=== PATIENT | male | born 1985 | race Caucasian/White ===

== ENCOUNTER 2017-02-13 22:00 | Emergency (ER) | payer BC ==
--- NOTE | 2017-02-13 22:22 | EDM.PDOC ---
ED HPI GENERAL MEDICAL PROBLEM - General Chief Complaint: Skin Complaint Stated Complaint: LEFT ARM PAIN Time Seen by Provider: 02/13/17 22:06 - History of Present Illness INITIAL COMMENTS - FREE TEXT/NARRATIVE: HISTORY AND PHYSICAL: History of present illness: The patient is a healthy 31-year-old male who presents for evaluation of bruising and discomfort to his left antecubital fossa after having an IV placed there 3 days ago. The patient said he was seen at an ER in [place] where he was hiking and was evaluated for dehydration and exhaustion. He says that those symptoms have resolved and he is not worried about that. He came because he had some bruising in that area with IV was started, the left antecubital fossa, because he says that they told them that they initially missed the vein and then got in. He was concerned because the bruising seemed to increase in size and some. He has been using his arm a lot with his daily activities. He has no neurosensory changes in his arm no streaking up his arm and no weakness in that arm. He otherwise has no systemic complaints Review of systems: As per history of present illness and below otherwise all systems reviewed and negative. Past medical history: As per history of present illness and as reviewed below otherwise noncontributory. Surgical history: As per history of present illness and as reviewed below otherwise noncontributory. Social history: No reported history of drug or alcohol abuse. Family history: As per history of present illness and as reviewed below otherwise noncontributory. Physical exam: Gen.: Well-developed well-nourished man who is nontoxic and vital signs reviewed by me HEENT: Atraumatic, normocephalic, negative for conjunctival pallor or scleral icterus, mucous membranes moist, throat clear, neck supple, nontender, trachea midline. Lungs: Clear to auscultation, breath sounds equal bilaterally, chest nontender. Heart: S1S2, regular rate and rhythm no overt murmurs Abdomen: Soft, nondistended, nontender. NABS Pelvis: Deferred Genitourinary: Deferred. Rectal: Deferred. Extremities: Atraumatic, full range of motion without any defects or deficits no palpable bony deformities. At the left antecubital fossa there is a resolving ecchymosis which is brownish in color with some areas of purplish coloration but the vein is not hardened and only minimally tender. There is no compartment swelling or abnormalities distally and proximally there is no erythema warmth or streaking noted. Neurovascular unremarkable. Neuro: Awake, alert, oriented. Cranial nerves II through XII unremarkable. Cerebellum unremarkable. Motor and sensory unremarkable throughout. Exam nonfocal. Diagnostics: [] Therapeutics: [] Impression: Left antecubital resolving hematoma status post IV start Definitive disposition and diagnosis as appropriate pending reevaluation and review of above. left arm Pain Score (Numeric/FACES): 4 - Related Data Allergies Allergy/AdvReac Type Severity Reaction Status Date / Time No Known Allergies Allergy Verified 02/13/17 22:12 Home Meds: Home Meds . 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" - Infectious Disease History Infectious Disease History: Reports: None - Past Surgical History Head Surgeries/Procedures: Reports: None HEENT Surgical History: Reports: Oral Surgery Dermatological Surgical History: Reports: Other (See Below) Social & Family History - Family History Family Medical History: Noncontributory - Tobacco Use Smoking Status *Q: Never Smoker Second Hand Smoke Exposure: No - Caffeine Use Caffeine Use: Reports: Coffee - Alcohol Use Days Per Week of Alcohol Use: 7 Number of Drinks Per Day: 3 Total Drinks Per Week: 21 - Recreational Drug Use Recreational Drug Use: No Drug Use in Last 12 Months: Yes Recreational Drug Type: Reports: Marijuana/Hashish Recreational Drug Use Frequency: Socially ED ROS GENERAL - Review of Systems Review Of Systems: ROS reveals no pertinent complaints other than HPI. ED EXAM, SKIN/RASH Exam: See Below (See dictation) Course - Vital Signs Last Recorded V/S: Last Vital Signs Temp 36.3 C 02/13/17 22:12 Pulse 60 02/13/17 22:12 Resp 18 02/13/17 22:12 BP 132/74 02/13/17 22:12 Pulse Ox 97 02/13/17 22:12 Departure - Departure Time of Disposition: 22:20 Disposition: Home, Self-Care 01 Condition: Good Clinical Impression: Traumatic ecchymosis of left upper arm Qualifiers: Encounter type: initial encounter Qualified Code(s): S40.022A - Contusion of left upper arm, initial encounter - Discharge Information Forms: ED Department Discharge Additional Instructions: The following information is given to patients seen in the emergency department who are being discharged to home. This information is to outline your options for follow-up care. We provide all patients seen in our emergency department with a follow-up referral. The need for follow-up, as well as the timing and circumstances, are variable depending upon the specifics of your emergency department visit. If you don't have a primary care physician on staff, we will provide you with a referral. We always advise you to contact your personal physician following an emergency department visit to inform them of the circumstance of the visit and for follow-up with them and/or the need for any referrals to a consulting specialist. The emergency department will also refer you to a specialist when appropriate. This referral assures that you have the opportunity for followup care with a specialist. All of these measure are taken in an effort to provide you with optimal care, which includes your followup. Under all circumstances we always encourage you to contact your private physician who remains a resource for coordinating your care. When calling for followup care, please make the office aware that this follow-up is from your recent emergency room visit. If for any reason you are refused follow-up, please contact the [facility] emergency department at and ask to speak to the emergency department charge nurse. [facility] Primary care- Internal Medicine and Family [address] [address] Elevate the area and use warm compresses for discomfort. Use [id number] medications for pain. The area will continue to change color and will eventually resolve over time. Please call and follow-up with your provider or one of our clinic doctors in the next few days for reevaluation and further management of this complaint. Return to ER as needed and as discussed
[2017-02-13 22:32] VITALS: BP 128/70
== END 2017-02-13 22:31 | disposition home or self-care (01) ==
LOC: MW.ED 22:00
DX: T80.89XA Other complications following infusion, transfusion and therapeutic injection, initial encounter (principal); S40.022A Contusion of left upper arm, initial encounter; X58.XXXA Exposure to other specified factors, initial encounter
CPT/HCPCS: 99282; 99283

== ENCOUNTER 2017-05-07 09:30 | Emergency (ER) | payer BC, OTHER ==
[2017-05-07 09:51] VITALS: BP 151/98
--- NOTE | 2017-05-07 10:23 | EDM.PDOC ---
ED HPI GENERAL MEDICAL PROBLEM - General Chief Complaint: Neuro Symptoms/Deficits Stated Complaint: DIZZINESS Time Seen by Provider: 05/07/17 10:03 Source of Information: Reports: Patient History Limitations: Reports: No Limitations - History of Present Illness INITIAL COMMENTS - FREE TEXT/NARRATIVE: History of present illness: [32-year-old male comes in complaining of lightheadedness, faintness, racing heart. Patient has a history of chronic alcohol consumption as well as occasional drug use in the form of cocaine. Patient acknowledges that he struggles with depression and he finds it within the realm of possibility that he could be having some anxiety issues. 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 Patient is uncertain if this is a viral illness such as the flu or more and would like to be evaluated.] Review of systems: As per history of present illness and below otherwise all systems reviewed and negative. Past medical history: As per history of present illness and as reviewed below otherwise noncontributory. Surgical history: As per history of present illness and as reviewed below otherwise noncontributory. Social history: No reported history of drug or alcohol abuse. Family history: As per history of present illness and as reviewed below otherwise noncontributory. Physical exam: HEENT: Atraumatic, normocephalic, pupils reactive, negative for conjunctival pallor or scleral icterus, mucous membranes moist, throat clear, neck supple, nontender, trachea midline. Lungs: Clear to auscultation, breath sounds equal bilaterally, chest nontender. Heart: S1S2, regular, negative for clicks, rubs, or JVD. Abdomen: Soft, nondistended, nontender. Negative for masses or hepatosplenomegaly. Negative for costovertebral tenderness. Pelvis: Stable nontender. Genitourinary: Deferred. Rectal: Deferred. Extremities: Atraumatic, negative for cords or calf pain. Neurovascular unremarkable. Neuro: Awake, alert, oriented. Cranial nerves II through XII unremarkable. Cerebellum unremarkable. Motor and sensory unremarkable throughout. Exam nonfocal. Global assessment is benign save the subjective complaint as noted above we'll test for influenza per patient's request as well as some basic labs to make sure he is not experiencing any nature and electronically amounts. Diagnostics: [Influenza and B, CBC, CMP] Therapeutics: [IV fluid, Ativan] Impression: [Anxiety] Plan: [Follow-up with family practice referral, brief run of Ativan] Definitive disposition and diagnosis as appropriate pending reevaluation and review of above. - Related Data Allergies Allergy/AdvReac Type Severity Reaction Status Date / Time No Known Allergies Allergy Verified 02/13/17 22:12 Home Meds: Home Meds . 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" - Infectious Disease History Infectious Disease History: Reports: None - Past Surgical History Head Surgeries/Procedures: Reports: None HEENT Surgical History: Reports: Oral Surgery Dermatological Surgical History: Reports: Other (See Below) Social & Family History - Family History Family Medical History: Noncontributory - Tobacco Use Smoking Status *Q: Never Smoker Second Hand Smoke Exposure: No - Caffeine Use Caffeine Use: Reports: Coffee - Alcohol Use Days Per Week of Alcohol Use: 7 Number of Drinks Per Day: 3 Total Drinks Per Week: 21 - Recreational Drug Use Recreational Drug Use: No Drug Use in Last 12 Months: Yes Recreational Drug Type: Reports: Marijuana/Hashish Recreational Drug Use Frequency: Socially ED ROS GENERAL - Review of Systems Review Of Systems: See Below (See history of present illness) ED EXAM, GENERAL - Physical Exam Exam: See Below (History of present illness) Course - Vital Signs Last Recorded V/S: Last Vital Signs Temp 36.7 C 05/07/17 09:44 Pulse 79 05/07/17 09:44 Resp 18 05/07/17 09:44 BP 151/98 H 05/07/17 09:44 Pulse Ox 99 05/07/17 09:44 - Orders/Labs/Meds Labs: Laboratory Tests 05/07/17 05/07/17 Range/Units 10:37 10:37 WBC 6.12 (4.0-11.0) K/uL RBC 5.20 (4.50-5.90) M/uL Hgb 15.7 (13.0-17.0) g/dL Hct 44.6 (38.0-50.0) % MCV 85.8 (80.0-98.0) fL MCH 30.2 (27.0-32.0) pg MCHC 35.2 (31.0-37.0) g/dL RDW Std Deviation 42.7 (28.0-62.0) fl RDW Coeff of Neville 14 (11.0-15.0) % Plt Count 251 (150-400) K/uL MPV 10.20 (7.40-12.00) fL Neut % (Auto) 66.5 (48.0-80.0) % Lymph % (Auto) 20.6 (16.0-40.0) % [place] % (Auto) 9.6 (0.0-15.0) % Eos % (Auto) 2.8 (0.0-7.0) % Baso % (Auto) 0.5 (0.0-1.5) % Neut # (Auto) 4.1 (1.4-5.7) K/uL Lymph # (Auto) 1.3 (0.6-2.4) K/uL [place] # (Auto) 0.6 (0.0-0.8) K/uL Eos # (Auto) 0.2 (0.0-0.7) K/uL Baso # (Auto) 0.0 (0.0-0.1) K/uL Nucleated RBC % 0.0 /100WBC Nucleated RBCs # 0 K/uL Sodium 140 (136-146) mmol/L Potassium 3.8 (3.5-5.1) mmol/L Chloride 108 (98-110) mmol/L Carbon Dioxide 22 (21-31) mmol/L BUN 10 (6.0-23.0) mg/dL Creatinine 0.9 (0.6-1.5) mg/dL Est Cr Clr Drug Dosing 115.65 mL/min Estimated GFR (MDRD) > 60.0 ml/min Glucose 94 (60-110) mg/dL Calcium 9.1 (8.8-10.8) mg/dL Total Bilirubin 0.5 (0.1-1.5) mg/dL AST 29 (5-40) IU/L ALT 34 (8-54) IU/L Alkaline Phosphatase 66 (40-150) Total Protein 7.3 (6.0-8.0) g/dL Albumin 4.1 (3.5-5.0) g/dL Globulin 3.2 (2.0-3.5) g/dL Albumin/Globulin Ratio 1.3 (1.3-2.8) Meds: Medications Discontinued Medications Generic Name Dose Route Start Last Admin Trade Name Eve PRN Reason Stop Dose Admin Sodium Chloride 1,000 mls @ 999 mls/hr 05/07/17 10:05/07/17 11:13 Normal Saline IV 05/07/17 11: 999 mls/hr STAT ONE Administration Lorazepam 1 mg 05/07/17 10:05/07/17 11:12 Ativan IVPUSH 05/07/17 10:30 1 mg ONETIME ONE Administration Departure - Departure Time of Disposition: 12:15 Disposition: Home, Self-Care 01 Condition: Good Clinical Impression: Anxiety and depression - Discharge Information Referrals: PCP,None [Primary Care Provider] - Forms: ED Department Discharge Additional Instructions: The following information is given to patients seen in the emergency department who are being discharged to home. This information is to outline your options for follow-up care. We provide all patients seen in our emergency department with a follow-up referral. The need for follow-up, as well as the timing and circumstances, are variable depending upon the specifics of your emergency department visit. If you don't have a primary care physician on staff, we will provide you with a referral. We always advise you to contact your personal physician following an emergency department visit to inform them of the circumstance of the visit and for follow-up with them and/or the need for any referrals to a consulting specialist. The emergency department will also refer you to a specialist when appropriate. This referral assures that you have the opportunity for follow-up care with a specialist. All of these measure are taken in an effort to provide you with optimal care, which includes your follow-up. Under all circumstances we always encourage you to contact your private physician who remains a resource for coordinating your care. When calling for follow-up care, please make the office aware that this follow-up is from your recent emergency room visit. If for any reason you are refused follow-up, please contact the [facility] Emergency Department at and asked to speak to the emergency department charge nurse. Take medication as directed Follow up with primary care as discussed Return to ED as needed as discussed [facility] Primary Care [facility] [place] [id number]
[2017-05-07] MEDS ORDERED: Sodium Chloride 0.9% 1,000 ML IV ONE (10:29)
[2017-05-07] MEDS ORDERED: LORazepam 2 MG/ML SDV IVPUSH ONE (10:29)
[2017-05-07 11:06] LABS: CHLORIDE,CL 108 mmol/L (98-110); SODIUM,NA 140 mmol/L (136-146)
== END 2017-05-07 12:50 | disposition home or self-care (01) ==
LOC: MW.ED 09:30
DX: F41.8 Other specified anxiety disorders (principal)
CPT/HCPCS: 36415; 80053; 85025; 87804; 93005; 96361; 96374; 99284; J2060; J7040

== ENCOUNTER 2017-07-11 11:30 | Emergency (ER) | payer BC ==
[2017-07-11] MEDS ORDERED: Albuterol/Ipratropium 3.0-0.5 MG/3 ML Neb Soln NEB ONE (11:58)
[2017-07-11] MEDS ORDERED: Ondansetron 4 MG/2 ML SDV IVPUSH ONE (11:58)
[2017-07-11] MEDS ORDERED: Sodium Chloride 0.9% 1,000 ML IV ONE (11:58)
--- NOTE | 2017-07-11 13:11 | EDM.PDOC ---
ED HPI GENERAL MEDICAL PROBLEM - General Chief Complaint: Respiratory Problem Stated Complaint: WEAK,HEADACHE AND COUGHING Time Seen by Provider: 07/11/17 12:30 Source of Information: Reports: Patient History Limitations: Reports: No Limitations - History of Present Illness INITIAL COMMENTS - FREE TEXT/NARRATIVE: History of present illness: [42 year male comes in complaining of nausea vomiting; amount of diarrhea as well as a cough and generalized body ache] Review of systems: As per history of present illness and below otherwise all systems reviewed and negative. Past medical history: As per history of present illness and as reviewed below otherwise noncontributory. Surgical history: As per history of present illness and as reviewed below otherwise noncontributory. Social history: No reported history of drug or alcohol abuse. Family history: As per history of present illness and as reviewed below otherwise noncontributory. Physical exam: HEENT: Atraumatic, normocephalic, pupils reactive, negative for conjunctival pallor or scleral icterus, mucous membranes moist, throat clear, neck supple, nontender, trachea midline. Lungs: Clear to auscultation, breath sounds equal bilaterally, chest nontender. Heart: S1S2, regular, negative for clicks, rubs, or JVD. Abdomen: Soft, nondistended, nontender. Negative for masses or hepatosplenomegaly. Negative for costovertebral tenderness. Pelvis: Stable nontender. Genitourinary: Deferred. Rectal: Deferred. Extremities: Atraumatic, negative for cords or calf pain. Neurovascular unremarkable. Neuro: Awake, alert, oriented. Cranial nerves II through XII unremarkable. Cerebellum unremarkable. Motor and sensory unremarkable throughout. Exam nonfocal. Global assessment is benign save noted a sporadic weak ineffectual cough. Diagnostics: [Influenza AB strep] Therapeutics: [] Impression: [Influenza a] Plan: [Zofran, inhaler, 72 hours off work] Definitive disposition and diagnosis as appropriate pending reevaluation and review of above. generalized body aches Pain Score (Numeric/FACES): 4 - Related Data Allergies Allergy/AdvReac Type Severity Reaction Status Date / Time No Known Allergies Allergy Verified 07/11/17 11:40 Home Meds: Home Meds Albuterol Sulfate [Proair Hfa] 2 puff IH Q6HR #1 hfa.aer.ad 07/11/17 [Rx] Inhaler, Assist Devices [Space Chamber Plus] 1 each ASDIRECTED #1 spacer 09/23 [Rx] Ondansetron [Zofran] 4 mg PO Q4H #30 tab 07/11/17 [Rx] methylPREDNISolone [Medrol] 4 mg PO DAILY #21 tab.ds.pk 07/11/17 [Rx] Past Medical History HEENT History: Reports: None Cardiovascular History: Reports: None Respiratory History: Reports: None Gastrointestinal History: Reports: None Genitourinary History: Reports: None Musculoskeletal History: Reports: None Neurological History: Reports: None Psychiatric History: Reports: Anxiety Endocrine/Metabolic History: Reports: None Hematologic History: Reports: None Immunologic History: Reports: None Oncologic (Cancer) History: Reports: None Dermatologic History: Reports: Other (See Below) 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" - Infectious Disease History Infectious Disease History: Reports: None - Past Surgical History Head Surgeries/Procedures: Reports: None HEENT Surgical History: Reports: Oral Surgery Dermatological Surgical History: Reports: Other (See Below) Social & Family History - Family History Family Medical History: Noncontributory - Tobacco Use Smoking Status *Q: Never Smoker Years of Tobacco use: 17 Packs/Tins Daily: 1 Second Hand Smoke Exposure: No - Caffeine Use Caffeine Use: Reports: Coffee - Alcohol Use Days Per Week of Alcohol Use: 3 Number of Drinks Per Day: 3 Total Drinks Per Week: 9 - Recreational Drug Use Recreational Drug Use: No Drug Use in Last 12 Months: Yes Recreational Drug Type: Reports: Marijuana/Hashish Recreational Drug Use Frequency: Socially ED ROS GENERAL - Review of Systems Review Of Systems: See Below (History of present illness) ED EXAM, GENERAL - Physical Exam Exam: See Below (History of present illness) Course - Vital Signs Last Recorded V/S: Last Vital Signs Temp 36.2 C 07/11/17 11:40 Pulse 74 07/11/17 11:40 Resp 18 07/11/17 11:40 BP 141/81 H 07/11/17 11:40 Pulse Ox 96 07/11/17 11:40 - Orders/Labs/Meds Orders: Active Orders 24 hr Category Date Time Status RT Aerosol Therapy [RC] ASDIRECTED Care 07/11/17 11:59 Ordered CULTURE STREP A CONFIRMATION [RM] Stat Lab 07/11/17 12:08 Results STREP SCRN A RAPID W CULT CONF [RM] Stat Lab 07/11/17 11:58 Uncollected Meds: Medications Discontinued Medications Generic Name Dose Route Start Last Admin Trade Name Eve PRN Reason Stop Dose Admin Albuterol/Ipratropium 3 ml 07/11/17 11:58 07/11/17 12:26 Duoneb 3.0-0.5 Mg/3 Ml NEB 07/11/17 11:59 3 ml ONETIME ONE Administration Sodium Chloride 1,000 mls @ 999 mls/hr 07/11/17 11:58 07/11/17 12:14 Normal Saline IV 07/11/17 12:58 999 mls/hr STAT ONE Administration Ondansetron HCl 4 mg 07/11/17 11:58 07/11/17 12:16 Zofran IVPUSH 07/11/17 11:59 4 mg ONETIME ONE Administration Departure - Departure Time of Disposition: 13:12 Disposition: Home, Self-Care 01 Condition: Good Clinical Impression: Influenza A - Discharge Information Instructions: Upper Respiratory Infection, Adult, [id number] Referrals: PCP,None [Primary Care Provider] - Additional Instructions: The following information is given to patients seen in the emergency department who are being discharged to home. This information is to outline your options for follow-up care. We provide all patients seen in our emergency department with a follow-up referral. The need for follow-up, as well as the timing and circumstances, are variable depending upon the specifics of your emergency department visit. If you don't have a primary care physician on staff, we will provide you with a referral. We always advise you to contact your personal physician following an emergency department visit to inform them of the circumstance of the visit and for follow-up with them and/or the need for any referrals to a consulting specialist. The emergency department will also refer you to a specialist when appropriate. This referral assures that you have the opportunity for follow-up care with a specialist. All of these measure are taken in an effort to provide you with optimal care, which includes your follow-up. Under all circumstances we always encourage you to contact your private physician who remains a resource for coordinating your care. When calling for follow-up care, please make the office aware that this follow-up is from your recent emergency room visit. If for any reason you are refused follow-up, please contact the [facility] Emergency Department at and asked to speak to the emergency department charge nurse. Take medication as directed Follow-up with PCP in 2-3 days or as needed Return to ED as needed as discussed - My Orders Last 24 Hours: My Active Orders 07/11/17 11:58 STREP SCRN A RAPID W CULT CONF [RM] Stat 07/11/17 11:59 RT Aerosol Therapy [RC] ASDIRECTED 07/11/17 12:08 CULTURE STREP A CONFIRMATION [] Stat - Assessment/Plan Last 24 Hours: My Active Orders 07/11/17 11:58 STREP SCRN A RAPID W CULT CONF [RM] Stat 07/11/17 11:59 RT Aerosol Therapy [RC] ASDIRECTED 07/11/17 12:08 CULTURE STREP A CONFIRMATION [] Stat
[2017-07-11 13:30] VITALS: BP 132/72
== END 2017-07-11 13:31 | disposition home or self-care (01) ==
LOC: MW.ED 11:30
DX: J10.1 Influenza due to other identified influenza virus with other respiratory manifestations (principal); Z79.899 Other long term (current) drug therapy
CPT/HCPCS: 87081; 87804; 87880; 94640; 96361; 96374; 99284; J2405; J7040; 99283

== ENCOUNTER 2018-02-11 08:25 | Day surgery (SDC) | payer BC ==
[~2018-02-11 08:25] MED LIST: Lidocaine 1% 20 ML MDV ONE
--- NOTE | 2018-02-11 09:21 | PCM.PREANE ---
Preanesthetic Assessment - Anesthesia/Transfusion/Family Hx Anesthesia History: Prior Anesthesia Without Reaction Family History of Anesthesia Reaction: No Transfusion History: No Prior Transfusion(s) - Review of Systems General: No Symptoms Pulmonary: No Symptoms Cardiovascular: No Symptoms Gastrointestinal: No Symptoms, Difficulty Swallowing Other: Reports: None - Physical Assessment NPO Status Date: 02/10/18 O2 Sat by Pulse Oximetry: 96 Respiratory Rate: 16 Vital Signs: Last Vital Signs Temp 36.4 C 02/11/18 08:49 Pulse 88 02/11/18 08:49 Resp 16 02/11/18 08:49 BP 138/88 02/11/18 08:49 Pulse Ox 96 02/11/18 08:49 Height: 1.75 m Weight: 90.718 kg ASA Class: 1 Mental Status: Alert & Oriented x3 Airway Class: Mallampati = 1 Dentition: Reports: Normal Dentition ROM/Head Extension: Full Lungs: Clear to Auscultation, Normal Respiratory Effort Cardiovascular: Regular Rate, Regular Rhythm - Allergies Allergies/Adverse Reactions: Allergies Allergy/AdvReac Type Severity Reaction Status Date / Time No Known Allergies Allergy Verified 02/05/18 15:30 - Anesthesia Plan Pre-Op Medication Ordered: None - Acknowledgements Anesthesia Type Planned: General Anesthesia Pt an Appropriate Candidate for the Planned Anesthesia: Yes Alternatives and Risks of Anesthesia Discussed w Pt/Guardian: Yes Pt/Guardian Understands and Agrees with Anesthesia Plan: Yes PreAnesthesia Questionnaire HEENT History: Reports: Other (See Below) Other HEENT History: hx of fx nose Cardiovascular History: Reports: None Respiratory History: Reports: None Gastrointestinal History: Reports: Other (See Below) Other Gastrointestinal History: occasional heartburn Genitourinary History: Reports: None Musculoskeletal History: Reports: Back Pain, Chronic, Fracture Other Musculoskeletal History: hx of fx finger Neurological History: Reports: Concussion Psychiatric History: Reports: Anxiety Endocrine/Metabolic History: Reports: None Hematologic History: Reports: None Immunologic History: Reports: None Oncologic (Cancer) History: Reports: None Dermatologic History: Reports: Other (See Below) 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" - Infectious Disease History Infectious Disease History: Reports: None - Past Surgical History Head Surgeries/Procedures: Reports: None HEENT Surgical History: Reports: Oral Surgery Musculoskeletal Surgical History: Reports: Other (See Below) Other Musculoskeletal Surgeries/Procedures:: Excision of "growth" from back of head Dermatological Surgical History: Reports: Other (See Below) - SUBSTANCE USE Smoking Status *Q: Current Every Day Smoker Tobacco Use Within Last Twelve Months: Smokeless Tobacco Days Per Week of Alcohol Use: 7 Number of Drinks Per Day: 3 Total Drinks Per Week: 21 Recreational Drug Use History: Yes - HOME MEDS Home Medications: Home Meds Eszopiclone [Lunesta] 1 mg PO BEDTIME PRN 12/16/17 [History] clonazePAM [Clonazepam] 0.25 mg PO BID PRN 02/05/18 [History] - CURRENT (IN HOUSE) MEDS Current Meds: Current Medications Discontinued Medications Lidocaine HCl (Xylocaine 1%) Confirm Administered Dose 20 ml .ROUTE .STK-MED ONE Stop: 02/11/18 07:15
[2018-02-11] MEDS ORDERED: Midazolam 1 MG/ML 2 ML SDV ONE (09:49)
[2018-02-11] MEDS ORDERED: Lidocaine 2% 5 ML SDV ONE (09:49)
[2018-02-11] MEDS ORDERED: Ondansetron 4 MG/2 ML SDV ONE (09:49)
[2018-02-11] MEDS ORDERED: Propofol 200 MG/20 ML SDV ONE (09:49)
[2018-02-11] MEDS ORDERED: fentaNYL 250 MCG/5 ML SDV ONE (09:50)
[2018-02-11] MEDS ORDERED: ceFAZolin/Dextrose,Iso-Osmotic 2 GM/50 ML Duplex Bag IV ONE (09:50)
[2018-02-11] MEDS ORDERED: fentaNYL 100 MCG/2 ML SDV IVPUSH PRN (09:59)
[2018-02-11] MEDS ORDERED: HYDROmorphone 2 MG/ML SDV ONE (11:22)
[2018-02-11] MEDS ORDERED: Lidocaine 1% 20 ML MDV ONE (11:24)
[2018-02-11] MEDS ORDERED: Ketorolac 30 MG/ML SDV ONE (11:24)
--- NOTE | 2018-02-11 12:22 | PCM.OPNOTE ---
- General Post-Op/Procedure Note Date of Surgery/Procedure: 02/11/18 Operative Procedure(s): R knee arthroscopy with PLM/PMM and excision of loose body (1.5cmx0.8cm) Post-Op Diagnosis: R knee. 1. partial ACL tear. 2. medial meniscus tear. 3. lateral meniscus tear. 4. OCD medial femoral condyle. 5. DJD knee Anesthesia Technique: General LMA Primary Surgeon: Penelope Nicholas Vp Celebrity Services: Belkys Hines Vp Celebrity Services: Michelet Brower Condition: Good Free Text/Narrative:: tt=36 min [id number]#
[2018-02-11 13:42] VITALS: BP 141/81
--- NOTE | 2018-02-11 17:55 | OR ---
SURGEON: Penelope Nicholas MD DATE OF PROCEDURE: 02/11/2018 PREOPERATIVE DIAGNOSES: 1. Right knee medial meniscus tear. 2. Right knee lateral meniscus tear. 3. Right knee loose body. POSTOPERATIVE DIAGNOSES: 1. Right knee medial meniscus tear. 2. Right knee lateral meniscus tear. 3. Right knee loose body. 4. Right knee osteochondral defect, medial femoral condyle. 5. Degenerative joint disease, right knee. PROCEDURE: Right knee arthroscopy with partial, medial, and lateral meniscectomy with excision of loose body (1.5 cm x 0.8 cm). DISTRICT GAUGER: Belkys Hines PA-C ANESTHESIA: General. ESTIMATED BLOOD LOSS: 5 mL. TOURNIQUET TIME: 36 minutes. COMPLICATIONS: None. DVT PROPHYLAXIS: Not indicated. IMPLANTS USED: None. BRIEF HISTORY: Shaun is a 32-year-old male who sustained an injury to his right knee. X-rays and CT scan did show a fracture of the tibial spine, which was nondisplaced. He was treated with nonweightbearing and limited motion for 6 weeks. He continued to complain of pain in his knee and an MRI was obtained. At that time, I recommended surgical intervention. The risks and goals of procedure were discussed with the patient and were documented preoperatively. He agreed to proceed. DESCRIPTION OF PROCEDURE: The patient was properly identified and brought to the operating room. He was transferred from the OR cart and placed on the operating table in supine position. General anesthesia was administered. After adequate anesthesia was obtained, a well-padded tourniquet was applied to the right lower extremity. The right lower extremity was then prepped in standard fashion using ChloraPrep solution. It was then sterilely draped. A time-out was performed to ensure correct site and procedure. Preoperative antibiotics were given. The surgical site had been marked preoperatively. An Esmarch was used to exsanguinate the right lower extremity and the tourniquet was inflated to 250 mmHg. A lateral portal arthrotomy was established. Blunt trocar and cannula were introduced into the suprapatellar pouch. Camera, inflow, and outflow were assembled. The suprapatellar pouch showed no significant synovitis. Immediately evident was a large, loose body. A medial portal arthrotomy was then established. A spinal needle was used to secure the loose body and a grasper was used to remove the loose body without difficulty. This was quite soft and appeared to be purely cartilaginous. It did measure approximately 1.5 cm x 0.8 cm. A small remaining loose body remained, which was resected with the shaver. The patellofemoral joint was then visualized. 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 The trochlear groove showed no significant degenerative findings. The patella appeared to track centrally. I then extended down the lateral and medial gutter. No loose bodies were identified. I then entered the medial compartment. Immediately evident was a tear of the anterior horn of the medial meniscus. A probe was inserted and he was found to have a bucket-handle tear of the posterior horn of the medial meniscus as well. This did show extensive degenerative fraying, which was not amenable to repair. A partial medial meniscectomy was performed. The edges were smoothed. The remainder of the meniscus was again probed and found to be stable. The medial tibial plateau was then inspected. This showed grade 2 chondromalacia. The medial femoral condyle was then inspected. A large, full-thickness osteochondral defect was noted along the posterior aspect of the medial femoral condyle. This did have some loose cartilage fragments, which were resected with a shaver. The knee was brought into full extension and it appeared that this defect involved a portion of the weightbearing surface. This measured approximately 10 mm x 10 mm. I then entered the notch. The ACL and PCL were visualized. The ACL appeared to have a partial tear, however, the anterior fibers did not appear to be causing any impingement. The remainder of the ACL was attached to the lateral wall. An anterior drawer test was performed under direct visualization, which did show mild anterior translation of the tibial plateau consistent with incompetent ACL. PCL was also visualized and probed and found to be intact. The tibial spines were inspected, I did not appreciate any evidence of nonunion. I then entered the lateral compartment. He did have a tear of the posterior horn of the lateral meniscus, which appeared unstable. With the incompetent ACL along with osteochondral defect along the medial aspect, I did not feel that a meniscus repair would be advantageous long-term. A partial lateral meniscectomy was then performed. The remainder of the meniscus was found to be stable. He did have a horizontal split along the layers, which was was probed. Both the superior and inferior fragments appeared stable. The instruments were then removed from the knee. The portal sites were closed with 3-0 nylon. Lidocaine 1% was injected along the portal tracts. Xeroform gauze was placed over the wound and a bulky dressing was applied. The tourniquet was then deflated. He was awakened from his anesthetic and transferred back to the operating room cart. He was brought to recovery room in stable condition. All needle and sponge counts were correct. ELVIN / THAIS /[id number]
== END 2018-02-11 13:45 | disposition home or self-care (01) ==
LOC: MW.SDS 08:25
PROVIDERS: ATTEND Orthopaedic Surgery
DX: S83.211A Bucket-handle tear of medial meniscus, current injury, right knee, initial encounter (principal); S83.281A Other tear of lateral meniscus, current injury, right knee, initial encounter; M21.961 Unspecified acquired deformity of right lower leg; M17.11 Unilateral primary osteoarthritis, right knee; M94.261 Chondromalacia, right knee; S83.511A Sprain of anterior cruciate ligament of right knee, initial encounter; F17.290 Nicotine dependence, other tobacco product, uncomplicated; F41.9 Anxiety disorder, unspecified; F32.9 Major depressive disorder, single episode, unspecified; F10.10 Alcohol abuse, uncomplicated; V86.96XA Unspecified occupant of dirt bike or motor/cross bike injured in nontraffic accident, initial encounter
CPT/HCPCS: 29880; J0131; J0690; J1170; J1885; J2250; J2405; J2704; J3010